=== PATIENT | male | born 1960 | race African-American/Black ===

== ENCOUNTER 2018-02-20 09:18 | Emergency (ER) | payer OTHER ==
[~2018-02-20] VITALS: Ht 162.6 cm; Wt 65.0 kg
[2018-02-20] MEDS ORDERED: LISI2.5T47 PO (09:22)
[2018-02-20] MEDS ORDERED: IBUPROFEN 800MG TABLET PO ONE (10:30)
[2018-02-20 13:35] VITALS: BP 145/78
== END 2018-02-20 14:45 | disposition home or self-care (01) ==
LOC: ER 09:42
DX: S80.02XA Contusion of left knee, initial encounter (principal); I10 Essential (primary) hypertension; W19.XXXA Unspecified fall, initial encounter; Y93.89 Activity, other specified; Y92.89 Other specified places as the place of occurrence of the external cause; Y99.8 Other external cause status
CPT/HCPCS: 73562; 99284